=== PATIENT | male | born 2005 | race Caucasian/White ===

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

== ENCOUNTER → 2024-12-08 | Outpatient (CLI) | payer BC ==
[~2024-12-08] MED LIST: METH2.5T48 PO
[2024-12-08 16:52] LABS: ALT/SGPT 43 U/L (7.0-40); AST/SGOT 38 U/L (<34); CALCIUM LEVEL 9.7 MG/DL (8.5-10.1); CARBON DIOXIDE LEVEL 30 MMOL/L (20-31); CHLORIDE LEVEL 102 MMOL/L (98-107); CHOLESTEROL LEVEL 122 MG/DL (<200); CHOLESTEROL RISK RATIO 2.66 (<5); CREATININE FOR GFR 0.94 MG/DL (0.70-1.30); GLOMERULAR FILTRATION RATE > 90.0 (>60); LDL CHOLESTEROL 68.0 MG/DL (<100); NON-HDL-C 76.2 MG/DL; POTASSIUM SERUM 4.4 MMOL/L (3.5-5.1); SODIUM LEVEL 141 MMOL/L (136-145); TRIGLYCERIDES LEVEL 41 MG/DL (<150)
== END ==
LOC: M LAB 15:31
PROVIDERS: ATTEND Physician Assistant
DX: Z79.899 Other long term (current) drug therapy (principal)

== ENCOUNTER 2024-12-26 07:50 | Emergency (ER) | payer OTHER, BC ==
[~2024-12-26] VITALS: Ht 193 cm; Wt 102.9 kg
[2024-12-26 11:36] VITALS: BP 143/67; TEMP 97.2; O2SAT 100
== END 2024-12-26 12:24 | disposition home or self-care (01) ==
LOC: M ED 07:50 → EDBD 07:50 → M ED 12:24
DX: S67.193A Crushing injury of left middle finger, initial encounter (principal); S67.195A Crushing injury of left ring finger, initial encounter; W23.2XXA Caught, crushed, jammed or pinched between a moving and stationary object, initial encounter; Y92.9 Unspecified place or not applicable; Y93.9 Activity, unspecified; Y99.0 Civilian activity done for income or pay; Z79.899 Other long term (current) drug therapy

== ENCOUNTER 2025-04-27 15:45 | Emergency (ER) | payer BC, OTHER ==
[~2025-04-27] VITALS: Ht 193 cm; Wt 109.1 kg
[2025-04-27 17:03] LABS: KETONE, URINE AUTO RFX TRACE mg/dL (NEGATIVE); LEUKOCYTE ESTERASE UR AUTO RFX NEGATIVE (NEGATIVE); MUCUS, URINE RFX SMALL (NEGATIVE); NITRITE, URINE AUTO RFX NEGATIVE (NEGATIVE); RBC, URINE AUTO RFX 1 /HPF (0-3); SQUAM EPITHELIAL CELL UR AURFX 0 /HPF (0-6); WBC, URINE AUTO RFX 5 /HPF (0-3)
[2025-04-27] MEDS: ACETAMINOPHEN 500 MG TAB PO ONE (17:38)
[2025-04-27] MEDS: NS (Normal Saline) 0.9% 1,000 ML IV ONE (17:38)
[2025-04-27 18:13] LABS: PLATELET COUNT, AUTOMATED 195 10^3/uL (150-450)
[2025-04-27 18:17] LABS: CALCIUM LEVEL 8.5 MG/DL (8.5-10.1); CARBON DIOXIDE LEVEL 26 MMOL/L (20-31); CHLORIDE LEVEL 105 MMOL/L (98-107); CREATININE FOR GFR 0.85 MG/DL (0.70-1.30); GLOMERULAR FILTRATION RATE > 90.0 (>60); POTASSIUM SERUM 4.1 MMOL/L (3.5-5.1); SODIUM LEVEL 141 MMOL/L (136-145)
[2025-04-27 18:19] LABS: CPK CREATINE PHOSPHOKINASE 269 U/L (46-171)
[2025-04-27 18:37] LABS: ATYPICAL LYMPH 22 % (0-5); LYMPHOCYTES 13 % (16-44); METAMYELOCYTES 1 % (0-0); MONOCYTES 7 % (0-5); NEUTROPHILS 47 % (28-66)
[2025-04-27 18:38] LABS: PLATELET ESTIMATE NORMAL (NORMAL)
[2025-04-27] MEDS ORDERED: ISOVUE-370 76% 100 ML VIAL As Ordered ONE (18:56)
[2025-04-27 19:02] LABS: MONO SCRN POSITIVE (NEGATIVE)
[2025-04-27 20:30] VITALS: BP 136/60; TEMP 97.8; O2SAT 100
== END 2025-04-27 20:35 | disposition home or self-care (01) ==
LOC: M ED 15:45
DX: B27.90 Infectious mononucleosis, unspecified without complication (principal); R16.2 Hepatomegaly with splenomegaly, not elsewhere classified; K76.0 Fatty (change of) liver, not elsewhere classified; Z79.899 Other long term (current) drug therapy
CPT/HCPCS: 71260; 80048; 81001; 81002; 82550; 83605; 85025; 85652; 86308; 87040; 87426; 87428; 87486; 87581; 87633; 87798; 93041; 96360; 96361; 99284; Q9967